=== PATIENT | male | born 1970 | race Two or more races ===

== ENCOUNTER 2018-10-14 20:33 | Inpatient (IN) | payer MEDICAID ==
[~2018-10-14] VITALS: Ht 180.3 cm; Wt 86.2 kg
[2018-10-15] MEDS ORDERED: ASPIRIN 81MG TABLET PO ONE (01:15)
[2018-10-15 01:45] LABS: BASOPHILS % 0.6 % (0.0-2.0); EOSINOPHILS % 1.6 % (0.0-5.0); HEMATOCRIT. 43.1 % (42.0-52.0); LYMPHOCYTES % 24.2 % (20.0-50.0); MEAN CORPUSCULAR HEMOGLOBIN 28.8 pg (28.0-32.0); MEAN PLATELET VOLUME 9.4 fl (7.4-10.4); MONOCYTES % 9.2 % (2.0-8.0); NEUTROPHILS % 64.4 % (40.0-76.0); PLATELET 256 x1000/uL (130-400); RED BLOOD CELL COUNT 5.19 mill/uL (4.7-6.1); RED CELL DISTRIBUTION WIDTH 13.2 % (11.6-14.6)
[2018-10-15 01:52] LABS: CHLORIDE 108 mEq/L (98-107)
[2018-10-15 09:30] VITALS: BP 131/86
[2018-10-15] MEDS ORDERED: HYDROCODONE/ACETAMINOPHEN 5/325MG TABLET PO PRN (11:45)
[2018-10-15] MEDS ORDERED: CLONIDINE 0.1MG TABLET PO PRN (11:45)
[2018-10-15] MEDS ORDERED: ACETAMINOPHEN 325MG TABLET PO PRN (11:45)
[2018-10-15] MEDS ORDERED: ONDANSETRON HCL 4MG/2ML INJ IV PRN (11:45)
[2018-10-15] MEDS ORDERED: LORAZEPAM 0.5MG TABLET PO PRN (11:45)
[2018-10-15] MEDS ORDERED: DOCUSATE SODIUM 100MG CAPSULE PO PRN (11:45)
[2018-10-15] MEDS ORDERED: IPRATROPIUM/ALBUTEROL 0.5-3(2.5)MG/3ML NEB INH PRN (11:45)
[2018-10-15] MEDS ORDERED: INFLUENZA VIRUS VACCINE(AFLURIA) 0.5ML SYR IM ONE (12:30)
[2018-10-15] MEDS ORDERED: PNEUMOCOCCAL 23-VAL P-SAC VAC 0.5 ML IM ONE (12:30)
[2018-10-15 13:43] LABS: PHOSPHORUS 3.3 mg/dL (2.5-4.9)
[2018-10-15 13:44] LABS: LDL CHOLESTEROL 158 mg/dL (5-100)
[2018-10-15] MEDS: PANTOPRAZOLE 40MG DR TABLET PO SCH (13:44)
[2018-10-15 13:45] LABS: HDL CHOLESTEROL 40 mg/dL (40-59)
[2018-10-15 13:46] LABS: CREATINE KINASE 94 IU/L (39-308)
[2018-10-15 13:48] LABS: CREATINE KINASE MB FRACTION < 1.0 ng/mL (0.5-3.6)
[2018-10-15 16:00] VITALS: BP 120/77
[2018-10-15 20:00] VITALS: BP 135/82
[2018-10-15] MEDS: ATORVASTATIN CALCIUM 40MG TABLET PO SCH (20:18)
[2018-10-16] VITALS: BP 122/76
[2018-10-16 02:27] LABS: *AMPHETAMINES SCREEN URINE NEGATIVE (NEGATIVE); *BARBITURATES SCREEN URINE NEGATIVE (NEGATIVE); *BENZODIAZEPINES SCREEN URINE NEGATIVE (NEGATIVE); *COCAINE SCREEN URINE NEGATIVE (NEGATIVE); CANNABINOID URINE SCREEN NEGATIVE (NEGATIVE); PHENCYCLIDINE URINE SCREEN NEGATIVE (NEGATIVE)
[2018-10-16 02:28] LABS: OPIATES URINE SCREEN NEGATIVE (NEGATIVE)
[2018-10-16 02:29] LABS: METHADONE URINE SCREEN NEGATIVE (NEGATIVE)
[2018-10-16 04:07] VITALS: BP 121/73
[2018-10-16 06:53] LABS: BASOPHILS % 0.5 % (0.0-2.0); CHLORIDE 107 mEq/L (98-107); EOSINOPHILS % 1.8 % (0.0-5.0); HEMATOCRIT. 44.6 % (42.0-52.0); HEMOGLOBIN. 15.2 g/dL (14.0-18.0); LYMPHOCYTES % 22.5 % (20.0-50.0); MEAN CORPUSCULAR HEMOGLOBIN 28.8 pg (28.0-32.0); MEAN CORPUSCULAR VOLUME 84.5 fL (80.0-94.0); MEAN PLATELET VOLUME 9.4 fl (7.4-10.4); MONOCYTES % 8.6 % (2.0-8.0); NEUTROPHILS % 66.6 % (40.0-76.0); PLATELET 253 x1000/uL (130-400); RED BLOOD CELL COUNT 5.27 mill/uL (4.7-6.1); RED CELL DISTRIBUTION WIDTH 13.3 % (11.6-14.6)
[2018-10-16 08:00] VITALS: BP 128/69
[2018-10-16] MEDS: PANTOPRAZOLE 40MG DR TABLET PO SCH (09:36)
[2018-10-16 12:00] VITALS: BP 120/77
[2018-10-16] MEDS: LISINOPRIL 5MG TABLET PO SCH (15:06)
[2018-10-16 16:00] VITALS: BP 118/68
[2018-10-16 17:56] LABS: CLARITY URINE CLEAR (CLEAR); COLOR URINE YELLOW (YELLOW); KETONES URINE NEGATIVE (NEGATIVE); LEUKOCYTE ESTERASE URINE NEGATIVE (NEGATIVE); NITRITE URINE NEGATIVE (NEGATIVE); OCCULT BLOOD URINE NEGATIVE (NEGATIVE); PH URINE 6.5 (4.5-8.0); PROTEIN URINE NEGATIVE (NEGATIVE); SPECIFIC GRAVITY URINE 1.013 (1.005-1.030); UROBILINOGEN URINE 0.2 E.U./dL (0.2-1.0)
[2018-10-16 20:00] VITALS: BP 106/59
[2018-10-16] MEDS: CARVEDILOL 3.125 MG TABLET PO SCH (21:00)
[2018-10-16] MEDS: ATORVASTATIN CALCIUM 40MG TABLET PO SCH (21:36)
[2018-10-17] VITALS: BP 107/61
[2018-10-17 04:00] VITALS: BP 106/67
[2018-10-17 07:04] LABS: BASOPHILS % 0.7 % (0.0-2.0); EOSINOPHILS % 3.3 % (0.0-5.0); HEMATOCRIT. 43.6 % (42.0-52.0); HEMOGLOBIN. 14.9 g/dL (14.0-18.0); LYMPHOCYTES % 30.9 % (20.0-50.0); MEAN CORPUSCULAR HEMOGLOBIN 28.9 pg (28.0-32.0); MEAN CORPUSCULAR VOLUME 84.6 fL (80.0-94.0); MEAN PLATELET VOLUME 9.6 fl (7.4-10.4); MONOCYTES % 9.5 % (2.0-8.0); NEUTROPHILS % 55.6 % (40.0-76.0); PLATELET 249 x1000/uL (130-400); RED BLOOD CELL COUNT 5.16 mill/uL (4.7-6.1); RED CELL DISTRIBUTION WIDTH 13.3 % (11.6-14.6)
[2018-10-17 07:26] LABS: CHLORIDE 105 mEq/L (98-107)
[2018-10-17] MEDS: CARVEDILOL 3.125 MG TABLET PO SCH (08:39)
[2018-10-17] MEDS: LISINOPRIL 5MG TABLET PO SCH (08:59)
[2018-10-17] MEDS ORDERED: FAMOTIDINE 20MG TABLET PO SCH (09:00)
[2018-10-17] MEDS ORDERED: LISI-186 PO (14:27)
[2018-10-17] MEDS ORDERED: COR3 PO (14:27)
[2018-10-17] MEDS ORDERED: LIP40 PO (14:27)
[2018-10-17 15:56] VITALS: BP 123/84
== END 2018-10-17 16:56 | disposition home or self-care (01) | DRG 194 ==
LOC: ER 20:33 → 7WST 10-15 03:55 → EDBEDREQ 10-15 03:59 → ENRESERV 10-15 07:15
PROVIDERS: ADMIT Internal Medicine; ATTEND Internal Medicine
DX: I50.23 Acute on chronic systolic (congestive) heart failure (principal); E87.8 Other disorders of electrolyte and fluid balance, not elsewhere classified; I42.9 Cardiomyopathy, unspecified; E11.9 Type 2 diabetes mellitus without complications; K59.00 Constipation, unspecified; F41.9 Anxiety disorder, unspecified; E78.5 Hyperlipidemia, unspecified; Z82.49 Family history of ischemic heart disease and other diseases of the circulatory system; Z87.11 Personal history of peptic ulcer disease; Z79.899 Other long term (current) drug therapy; Z79.82 Long term (current) use of aspirin; Z23 Encounter for immunization; K21.9 Gastro-esophageal reflux disease without esophagitis
CPT/HCPCS: 36415; 71045; 80048; 80061; 80305; 82550; 82553; 83036; 83735; 84100; 84443; 84484; 85379; 90686; 90732; 93005; 93306; 99285